=== PATIENT | male | born 1995 | race Caucasian/White ===

== ENCOUNTER 2023-06-01 09:45 | Outpatient (RCR) | payer OTHER | END 2023-06-20 | disposition home or self-care (01) | LOC: WSPT | DX: M54.51 Vertebrogenic low back pain (principal) ==

== ENCOUNTER 2023-06-24 08:11 | Outpatient (RCR) | payer OTHER | END 2023-07-21 | disposition home or self-care (01) | LOC: WSPT | DX: M54.51 Vertebrogenic low back pain (principal) ==

== ENCOUNTER 2023-12-09 19:45 | Emergency (ER) | payer OTHER ==
[~2023-12-09] VITALS: Ht 185.4 cm; Wt 95.5 kg
[2023-12-09 19:51] VITALS: TEMP 98.7
[2023-12-09 21:25] VITALS: BP 120/77; PULSE 68
== END 2023-12-09 21:25 | disposition short-term general hospital (02) ==
LOC: COL.ER 19:45
DX: N50.811 Right testicular pain (principal)